=== PATIENT | female | born 1990 | race Caucasian/White ===

== ENCOUNTER 2016-04-10 19:25 | Emergency (ER) | payer MEDICAID ==
[~2016-04-10 19:25] MED LIST: CLIN150 PO
[2016-04-10] MEDS ORDERED: LACTATED RINGER'S 1000 ML INJ 1,000 ML IV SCH (20:04)
--- NOTE | 2016-04-10 20:12 | PD ---
HPI Travel History International Travel<30 Days: No Contact w/Intl Traveler<30Days: No Known Affected Area: No History of Present Illness HPI This patient is a 25-year-old 2 para 1 EDC is July 29, 2016 presently at 24 weeks and 2 days she presents the chief complaint of nausea since around known subsequent onset of lower abdominal cramping for about 3 hours no ruptured membranes no vaginal bleeding the baby is active had some chills last night no fever positive diarrhea positive nausea and vomiting mild headache with the nausea had sexual intercourse yesterday cramping is intermittent in nature care with Dr. Olson course is significant for a subchorionic bleed in the first trimester History Past Medical History Narrative Medical No known drug allergies no major medical problems Obstetric History Obstetric History First baby born March 23, 2010 female weight 7 lbs. 1 oz. vaginal delivery uncomplicated Past Surgical History Surgical History: No Previous Surgery Family History Family History: Negative Social History Alcohol Use: No Tobacco Use: No Substance Abuse: No Allergies-Medications (Allergen,Severity, Reaction): Coded Allergies: No Known Allergies (Verified , 12/20/15) Home Meds Active Scripts Cephalexin 500 Mg [id number] Mg PO Q12H #14 CAP Ref 0 Prov:Tamika Maloney MD R2 04/10/16 Clindamycin Hcl (Cleocin)150 Mg [id number] Mg PO Q6 10 Days Prov:Frieda Mendoza 08/11/14 Review of Systems General / Constitutional: Chills Eyes: No: Diploplia, Blurred Vision, Visual changes, Pain, Photophobia, Other HENT: Headaches Cardiovascular: No: Irregular Rhythm, Chest Pain or Discomfort, Palpitations, Tachycardia, Syncope, Varicosities, Edema, Cyanosis, Other Respiratory: No: Cough, Short of Breath, Wheezing, Other Gastrointestinal: Nausea, Vomiting, Diarrhea, Abdominal Pain Genitourinary: No: Urgency, Frequency, Dysuria, Nocturia, Hematuria, Decreased Urinary Output, Oliguria, Hesitancy, Dribbling, Incontinence, Pelvic Pain, Dyspareunia, Discharge, Menorrhagia, Vaginal Bleeding, Other Musculoskeletal: No: Limited ROM, Weakness, Cramping, Edema, Pain, Other Physical Exam Narrative GENERAL: Well-nourished, well-developed patient. Alert oriented 3 and cooperative in no acute distress CARDIOVASCULAR: Regular rate and rhythm without murmurs, gallops, or rubs. RESPIRATORY: Breath sounds equal bilaterally. No accessory muscle use. ABDOMEN/GI: Gravid consistent with approximately 24 weeks soft nontender positive bowel sounds no epigastric or right upper quadrant tenderness no organomegaly uterus nontender Gravid to [-] weeks size 24 Fundal Height: [-] GENITOURINARY: Speculum exam is done no fluid no blood in the vagina cervix visibly long and closed External Genitalia: intact and normal in appearance BUS glands: [-] Cervix: [-] Posterior firm Dilatation: [-] Closed Effacement: [-] 0 Station: [-] High Presentation: [-] Vertex on ultrasound Membranes: [intact Uterine Contractions: [-]0 FHT's: Category: [-] Baseline: [-] 140 Reactive: [-] + Variability: [-] Moderate [id number] variability Decels: [-] Is to be 1 variable seen EXTREMITIES: No cyanosis or edema. 2+ reflexes NEUROLOGICAL: Awake and alert. Motor and sensory grossly within normal limits. Five out of 5 muscle strength in all muscle groups. Normal speech. Data Data Vital Signs Reviewed: Yes (blood pressures 120/74 pulse 108 temperature is 99.2 ) Orders Vital Signs (Adult) .ON ADMISSION (04/10/16 20:04) Labs Bedside ultrasound is done it's a vertex presentation the BPD is 6.17 equaling 24 weeks and 2 days Anterior grade 2 placenta no previa no abruption Cervical length is 3.07 no funneling at the internal os heart rate 1 54 bpm Baseline Positive flexion positive tone the baby is very active Normal pockets of fluid throughout MDM Medical Record Reviewed: No Interpretation(s) 25-year-old at 24 weeks and 2 days Not in labor Gastroenteritis Mild dehydration Rule out UTI Narrative Course / MDM Patient is feeling much better after IV fluid hydration and Zofran Sleeping Urinalysis culture is indicated Platelets are 325,000 hemoglobin is 12.2 As patient has an IV already will give Rocephin 1 g IV Discharge home on Keflex 500 mg by mouth 3 times a day for 7 days She is to follow-up with Dr. Olson And 24-48 hours By mouth fluid hydration kick counts Take her meds call Dr. Coppola office in the a.m. The machine running the CMP is down specimen most likely hemolyzed after the dose of Rocephin will discharge patient home have her follow-up with Dr. Olson and 24-48 hours Plan External monitoring IV fluid hydration lactated Ringer's at 1 25 cc an hour Zofran 4 mg IV single dose CBC CMP urinalysis Urine drug screen Reevaluation Diagnosis Diagnosis: Primary Impression: 24 weeks gestation of Additional Impressions: Gastroenteritis Dehydration UTI (urinary tract infection) in in second trimester Disposition: 01 DISCHARGE HOME Condition: Stable Scripts Cephalexin 500 Mg [id number] Mg PO Q12H #14 CAP Ref 0 Prov:Tamika Maloney MD R2 04/10/16 Kala Lin MD Apr 10, 2016 20:12
[2016-04-10] MEDS ORDERED: ONDANSETRON HCL 4 MG/2 ML VIAL IV ONE (20:15)
[2016-04-10 21:11] LABS: BACTERIA, URINE RARE /hpf; BLOOD, URINE NEG (NEG); COMMENT (UR) CULTURE INDICATED; CULTURE IF INDICATED CULTURE INDICATED; GLUCOSE,URINE NEG (NEG); KETONE, URINE 150 mg/dL (NEG); MUCUS URINE FEW /lpf (OCC); NITRITE,URINE NEG (NEG); PH, URINE 6.5 (5.0-8.5); SQUAMOUS EPITHELIAL CELL URINE 69 /hpf (0-5); URINE COLOR YELLOW (YELLW/STRAW)
[2016-04-10 21:21] LABS: HEMATOCRIT 35.2 % (35.0-46.0); MEAN CELL VOLUME 88.8 FL (80.0-100.0); MEAN CORPUSCULAR HEMOGLOBIN 30.9 PG (27.0-34.0); MEAN CORPUSCULAR HGB CONC 34.8 % (32.0-36.0); PLATELET COUNT 325 TH/MM3 (150-450); RED BLOOD COUNT 3.97 MIL/MM3 (4.00-5.30); RED CELL DISTRIBUTION WIDTH 13.2 % (11.6-17.2); REVIEW FLAG FINAL; WHITE BLOOD COUNT 11.1 TH/MM3 (4.0-11.0)
[2016-04-10] MEDS ORDERED: CEPH500C PO (21:29)
[2016-04-10] MEDS ORDERED: SODIUM CHLOR 0.9% 1000 ML INJ 1,000 ML IV SCH (21:29)
[2016-04-10] MEDS ORDERED: cefTRIAXone INJ 1,000 MG in SODIUM CHLORIDE 0.9% INJ 100 ML IV ONE (21:30)
[2016-04-10 22:13] LABS: AMPHETAMINE, URINE NEG (NEG); BARBITURATES, URINE NEG (NEG); COCAINE, URINE NEG (NEG)
[2016-04-10 22:19] LABS: ALT (GPT) 13 U/L (10-53); ANION GAP 9 MEQ/L (5-15); AST (GOT) 10 U/L (15-37); BICARBONATE 24.4 MEQ/L (21.0-32.0); BLOOD UREA NITROGEN 7 MG/DL (7-18); CHLORIDE 107 MEQ/L (98-107); GLOMERULAR FILTRATION RATE 149 ML/MIN (>89); POTASSIUM 3.5 MEQ/L (3.5-5.1); SODIUM (NA) 140 MEQ/L (136-145)
[2016-04-10 22:21] LABS: ALKALINE PHOSPHATASE 59 U/L (45-117); TOTAL BILIRUBIN ADULT 0.3 MG/DL (0.2-1.0)
[2016-04-15 11:32] LABS: OBMETHADONE UR NEG (NEG); PHENCYCLIDINE URINE NEG (NEG)
[2016-04-15 11:33] LABS: BATH SALTS (MDPV) UR NEG (NEG); ECSTASY (MDMA) UR NEG (NEG); HEROIN (6-ACETYLMORPHINE) UR NEG (NEG); K2 SPICE UR NEG (NEG); OXYCODONE (PERCODAN) NEG (NEG)
== END 2016-04-10 21:50 | disposition home or self-care (01) ==
LOC: HOBED 19:25
DX: O23.40 Unspecified infection of urinary tract in pregnancy, unspecified trimester (principal); O99.612 Diseases of the digestive system complicating pregnancy, second trimester; R10.9 Unspecified abdominal pain
CPT/HCPCS: 76815; 80053; 80307; 81001; 85027; 87086; 96361; 96374; 96375; 99284; G0481; J0696; J2405; J7030; J7120

== ENCOUNTER 2016-06-24 16:54 | Emergency (ER) | payer MEDICAID ==
[~2016-06-24 16:54] MED LIST changes: +CEPH500C PO
[2016-06-24 17:08] VITALS: BP 116/53; PULSE 141
[2016-06-24 17:15] VITALS: RESP 18; TEMP 98.4
[2016-06-24 17:46] LABS: BACTERIA, URINE RARE /hpf; BLOOD, URINE NEG (NEG); COMMENT (UR) CULT NOT INDICATED; CULTURE IF INDICATED CULT NOT INDICATED; GLUCOSE,URINE NEG (NEG); KETONE, URINE NEG (NEG); MUCUS URINE FEW /lpf (OCC); NITRITE,URINE NEG (NEG); SQUAMOUS EPITHELIAL CELL URINE 4 /hpf (0-5); URINE COLOR YELLOW (YELLW/STRAW)
--- NOTE | 2016-06-24 18:24 | PD ---
HPI Chief Complaint Swelling in her hands and feet Date Seen: Jun 24, 2016 Travel History International Travel<30 Days: No Contact w/Intl Traveler<30Days: No Known Affected Area: No History of Present Illness HPI This patient is a 25-year-old white female at [address] Olson for care presents complaining of swelling in her hands and feet over the last several weeks she denies bleeding leakage of fluid or contractions. Baby is active. Tracing is reactive and she is not viola, she denies headache blurry vision visual change, right upper quadrant pain. She does complain of swelling in her hands and feet mainly in her legs and also small white blotchy spots on her legs Para: 1 : 2 History Obstetric History Obstetric History One vaginal delivery Social History Alcohol Use: No Tobacco Use: No Substance Abuse: No Allergies-Medications (Allergen,Severity, Reaction): Coded Allergies: No Known Allergies (Verified , 12/20/15) Home Meds Active Scripts Cephalexin 500 Mg [id number] Mg PO Q12H #14 CAP Ref 0 Prov:Tamika Maloney MD R2 04/10/16 Clindamycin Hcl (Cleocin)150 Mg [id number] Mg PO Q6 10 Days Prov:Frieda Mendoza 08/11/14 Review of Systems General / Constitutional: No: Fever, Weight Gain, Chills, Other Eyes: No: Diploplia, Blurred Vision, Visual changes, Pain, Photophobia HENT: No: Headaches, Vertigo, Lightheadedness Cardiovascular: No: Irregular Rhythm, Chest Pain or Discomfort, Palpitations, Tachycardia, Syncope, Varicosities, Edema, Cyanosis Respiratory: No: Cough, Short of Breath, Other Gastrointestinal: No: Nausea, Vomiting, Diarrhea Genitourinary: No: Decreased Urinary Output, Oliguria Musculoskeletal: Edema, No: Limited ROM, Weakness, Cramping, Pain Skin: No Rash, No Itching, No Dryness, No Lumps, No Change in Pigmentation, No Change in Nails, No Alopecia, No Lesions Neurologic: No: Weakness, Dizziness, Syncope, Focal Abnormalities, Coordination Problem, Headache, Slurred Speech, Seizures Psychiatric: No: Depression, Suicidal Ideations, Homicidal Ideation Endocrine: No: Heat Intolerance, Cold Intolerance, Polydipsia, Polyuria, Other Physical Exam Narrative GENERAL: Well-nourished, well-developed patient. SKIN: Warm and dry. HEAD: Normocephalic and atraumatic. EYES: No scleral icterus. No injection or drainage. ENT: No nasal drainage noted. Mucous membranes pink. Airway patent. NECK: Supple, trachea midline. No JVD. CARDIOVASCULAR: Regular rate and rhythm without murmurs, gallops, or rubs. RESPIRATORY: Breath sounds equal bilaterally. No accessory muscle use. BREASTS: Bilateral exam showed no masses , no retractions, no nipple discharge. ABDOMEN/GI: Abdomen soft, non-tender, bowel sounds present, no rebound, no guarding Gravid to [35-] weeks size Fundal Height: [-35] Uterine Contractions: [-none] FHT's: Category: [-1] Baseline: [-133] Reactive: [-yes] Variability: [-mod] Decels: [none-] EXTREMITIES: No cyanosis ,2+ edema. It is noted in the pretibial area both legs and feet ,minimal swelling seen in her hands BACK: Nontender without obvious deformity. No CVA tenderness. NEUROLOGICAL: Awake and alert. Motor and sensory grossly within normal limits. Five out of 5 muscle strength in all muscle groups. Normal speech. Data Data Orders Vital Signs (Adult) .ON ADMISSION (06/24/16 17:07) ^ Labor Status (06/24/16 17:07) Urinalysis - C+S If Indicated (06/24/16 17:07) Labs Laboratory Tests Test 06/24/16 17:10 Urine Color YELLOW Urine Turbidity HAZY Urine pH 7.0 Urine Specific Vandiver 1.011 Urine Protein NEG Urine Glucose (UA) NEG Urine Ketones NEG Urine Occult Blood NEG Urine Nitrite NEG Urine Bilirubin NEG Urine Urobilinogen LESS THAN 2.0 Urine Leukocyte Esterase TRACE Urine RBC LESS THAN 1 Urine WBC 1 Urine Squamous Epithelial 4 Cells Urine Bacteria RARE Urine Mucus FEW Microscopic Urinalysis Comment CULT NOT INDICATED MDM Interpretation(s) Patient is 25-year-old white female at 35 weeks who presents complaining of swelling in her hands and feet. She denies any symptoms related to preeclampsia otherwise no visual change headaches blurry vision abdominal pain. heart rate tracing is reactive and no regular contractions, urinalysis negative for protein, on exam she has moderate edema in both lower extremities. Patient has a 4-year-old child and she is very busy working or going to school all day and then dealing with baby at night and so she is up on her feet a lot. Plan Plan for the patient to try and get a little bit more bedrest during this last month proper legs up. Cut back on salt in her diet. And follow-up with Dr. Olson for more visits or evaluations Diagnosis Diagnosis: Primary Impression: Swelling of lower extremity during in third trimester Disposition: 01 DISCHARGE HOME Condition: Stable Samir Mccord II, MD Jun 24, 2016 18:24
== END 2016-06-24 18:52 | disposition home or self-care (01) ==
LOC: HOBED 16:54
DX: O26.93 Pregnancy related conditions, unspecified, third trimester (principal); Z3A.35 35 weeks gestation of pregnancy
CPT/HCPCS: 59025; 81001

== ENCOUNTER 2016-07-09 05:15 | Inpatient (IN) | payer MEDICAID ==
[~2016-07-09] VITALS: Ht 165.1 cm; Wt 83.9 kg
[2016-07-09] VITALS (34 sets, daily range): BP systolic 94–154; BP diastolic 49–99; PULSE 75–104; RESP 16–18; TEMP 97.4–98.2
[2016-07-09] MEDS ORDERED: LACTATED RINGER'S 1000 ML INJ 1,000 ML IV PRN (05:49)
[2016-07-09] MEDS ORDERED: LACTATED RINGER'S 1000 ML INJ 1,000 ML IV SCH (05:49)
[2016-07-09] MEDS ORDERED: OXYTOCIN 30 UNITS-500ML PREMIX 500 ML IV ONE ×2 (06:00→08:45)
[2016-07-09] MEDS ORDERED: MINERAL OIL 10 ML VIAL TOPICAL PRN (06:00)
[2016-07-09] MEDS ORDERED: CITRIC ACID-SODIUM CITRATE LIQ 30 ML UDC PO SCH (06:00)
[2016-07-09] MEDS ORDERED: LIDOCAINE HCL 1% 50 ML VIAL INFIL PRN (06:00)
[2016-07-09] MEDS ORDERED: LIDOCAINE HCL 1% 50 ML VIAL I-DERMAL PRN (06:00)
[2016-07-09] MEDS ORDERED: ONDANSETRON HCL 4 MG/2 ML VIAL IV PRN (06:00)
[2016-07-09] MEDS ORDERED: SODIUM CHLORID 0.9% 500 ML INJ 500 ML IV PRN (06:00)
--- NOTE | 2016-07-09 06:04 | PD ---
HPI Chief Complaint contractions Date Seen: July 09, 2016 Time Seen: 05:45 Travel History International Travel<30 Days: No Contact w/Intl Traveler<30Days: No Known Affected Area: No History of Present Illness HPI Pt is a 25 y/o with IUP at 37.1 weeks c/o contractions q 2 min. no vb, lof. +FM Para: 1 : 2 History Past Medical History Narrative Medical anemia Obstetric History Obstetric History 2012 FTSVD, no complications Past Surgical History Surgical History: No Previous Surgery Family History Family History: Negative Social History Alcohol Use: No Tobacco Use: No Substance Abuse: No Allergies-Medications (Allergen,Severity, Reaction): Coded Allergies: No Known Allergies (Verified , 12/20/15) Home Meds Active Scripts Cephalexin 500 Mg [id number] Mg PO Q12H #14 CAP Ref 0 Prov:Tamika Maloney MD R2 04/10/16 Clindamycin Hcl (Cleocin)150 Mg [id number] Mg PO Q6 10 Days Prov:Frieda Mendoza 08/11/14 Review of Systems General / Constitutional: Weight Gain Eyes: No: Diploplia, Blurred Vision, Visual changes, Pain, Photophobia, Other HENT: No: Headaches, Vertigo, Dental Difficulties, Lightheadedness, Other Cardiovascular: Edema Respiratory: No: Cough, Short of Breath, Wheezing, Other Gastrointestinal: Abdominal Pain Genitourinary: No: Urgency, Frequency, Dysuria, Nocturia, Hematuria, Decreased Urinary Output, Oliguria, Hesitancy, Dribbling, Incontinence, Pelvic Pain, Dyspareunia, Discharge, Menorrhagia, Vaginal Bleeding, Other Musculoskeletal: Edema Skin: No Rash, No Itching, No Dryness, No Lumps, No Change in Pigmentation, No Change in Nails, No Alopecia, No Lesions, No Breast Lumps, No Breast Tenderness , No Breast Swelling, No Other Neurologic: No: Weakness, Dizziness, Syncope, Focal Abnormalities, Coordination Problem, Headache, Slurred Speech, Seizures, Other Psychiatric: No: Anxiety, Depression, Suicidal Ideations, Disorder of Thought, Mood Disorder, Substance Abuse, Homicidal Ideation, Other Endocrine: No: Heat Intolerance, Cold Intolerance, Polydipsia, Polyuria, Other Hematologic/Lymphatic: No Easy Bruising, No Lymph Node Enlargement, No Other Physical Exam 130/87, 89, 18, 98.1 Narrative GENERAL: Well-nourished, well-developed patient. SKIN: Warm and dry. HEAD: Normocephalic and atraumatic. EYES: No scleral icterus. No injection or drainage. ENT: No nasal drainage noted. Mucous membranes pink. Airway patent. NECK: Supple, trachea midline. No JVD. CARDIOVASCULAR: Regular rate and rhythm without murmurs, gallops, or rubs. RESPIRATORY: Breath sounds equal bilaterally. No accessory muscle use. . ABDOMEN/GI: Abdomen soft, non-tender, bowel sounds present, no rebound, no guarding Gravid GENITOURINARY: External Genitalia: intact and normal in appearance per RN exam 4-5/80/-1. vertex bedside ultrasound confirms vtx Membranes:intact Uterine Contractions: q2 FHT's: Category: [1] Baseline: 120s Reactive: yes Variability: mod Decels: no EXTREMITIES: No cyanosis or edema. BACK: Nontender without obvious deformity. No CVA tenderness. NEUROLOGICAL: Awake and alert. Motor and sensory grossly within normal limits. Five out of 5 muscle strength in all muscle groups. Normal speech. Data Data Vital Signs Reviewed: Yes Orders Ob (2e) Additional Admit Info (07/09/16 05:44) Admit To Inpatient (07/09/16 ) Code Status (07/09/16 05:49) Vital Signs (Adult) .Per protocol (07/09/16 05:49) Heart (07/09/16 05:49) Amnioinfusion (07/09/16 05:49) Urinary Catheter Management .ONCE (07/09/16 05:49) Diet Liquid (07/09/16 Breakfast) Lactated Ringer's 1000 Ml Inj (Lr 1000 M (07/09/16 05:49) Lactated Ringer's 1000 Ml Inj (Lr 1000 M (07/09/16 05:49) Sodium Chlorid 0.9% 500 Ml Inj (Ns 500 M (07/09/16 06:00) Sodium Chlor 0.9% 1000 Ml Inj (Ns 1000 M (07/09/16 06:09) Lidocaine 1% Inj (50 Ml) (Xylocaine 1% I (07/09/16 06:00) Citric Acid-Sodium Citrate Liq (Bicitra (07/09/16 06:00) Ondansetron Inj (Zofran Inj) (07/09/16 06:00) Fentanyl Inj (Fentanyl Inj) (07/09/16 06:00) Fentanyl Inj (Fentanyl Inj) (07/09/16 06:00) Complete Blood Count With Diff (07/09/16 05:49) Hold Clot (07/09/16 05:49) Abo/Rh Blood Type (07/09/16 05:49) Urinalysis - C+S If Indicated (07/09/16 05:49) Resp Oxygen Non Rebreathe Mask (07/09/16 ) ^ Epidural / Intrathecal Infus (07/09/16 05:49) Oxytocin 30 Units-500ml Premix (Pitocin (07/09/16 06:00) Lidocaine 1% Inj (50 Ml) (Xylocaine 1% I (07/09/16 06:00) Light Mineral Oil (Muri-Lube Oil) (07/09/16 06:00) MDM Narrative Course / MDM 25 y/o with IUP at 37.1 wks, active labor admit for delivery GBS neg per pt report, will have Dr. Olson confirm Roxy Beckman MD July 09, 2016 06:04
[2016-07-09 06:08] LABS: AUTOMATED NEUTROPHIL # 8.8 TH/MM3 (1.8-7.7); BASOPHIL # 0.1 TH/MM3 (0-0.2); BASOPHIL % 0.5 % (0.0-2.0); EOSINOPHIL # 0.1 TH/MM3 (0-0.4); EOSINOPHIL % 0.4 % (0.0-4.0); HEMATOCRIT 33.8 % (35.0-46.0); HEMO FLAGS DIFF FINAL; LYMPH % 24.1 % (9.0-44.0); MEAN CELL VOLUME 83.8 FL (80.0-100.0); MEAN CORPUSCULAR HEMOGLOBIN 28.7 PG (27.0-34.0); MEAN CORPUSCULAR HGB CONC 34.3 % (32.0-36.0); MONO % 4.6 % (0.0-8.0); NEUT % 70.4 % (16.0-70.0); PLATELET COUNT 430 TH/MM3 (150-450); RED BLOOD COUNT 4.04 MIL/MM3 (4.00-5.30); RED CELL DISTRIBUTION WIDTH 14.7 % (11.6-17.2); WHITE BLOOD COUNT 12.6 TH/MM3 (4.0-11.0)
[2016-07-09] MEDS ORDERED: SODIUM CHLOR 0.9% 1000 ML INJ 1,000 ML IV PRN (06:09)
[2016-07-09] MEDS ORDERED: fentaNYL 2MCG-BUPIV 0.125% INJ 100 ML ONE (06:14)
[2016-07-09 06:55] LABS: BACTERIA, URINE RARE /hpf; BLOOD, URINE NEG (NEG); COMMENT (UR) CULT NOT INDICATED; CULTURE IF INDICATED CULT NOT INDICATED; GLUCOSE,URINE NEG (NEG); KETONE, URINE NEG (NEG); MUCUS URINE FEW /lpf (OCC); NITRITE,URINE NEG (NEG); SQUAMOUS EPITHELIAL CELL URINE 17 /hpf (0-5); URINE COLOR LIGHT-YELLOW (YELLW/STRAW)
[2016-07-09] MEDS ORDERED: PREN29TA PO (07:31)
[2016-07-09] MEDS ORDERED: ePHEDrine/NS 25 MG/5 ML SYR IV PRN (08:15)
--- NOTE | 2016-07-09 08:36 | PD.OB.DELI ---
Delivery Date: July 09, 2016 Anesthesia: Epidural Episiotomy: None Vaginal Delivery: Normal Presentation: Occiput anterior Nuchal Cord: None Delayed cord clamping (45 sec): Yes Shoulder Dystocia: Harlan maneuver done Infant: Male One Minute : 7 Five Minute : 9 Weight: 8/14 Placenta: Spontaneous delivery, Intact, 3 vessel cord Laceration: No lacerations Additional Information Nice delivery of ([place], my name for the baby) Mild shoulder resolved with Harlan Terminal meconium. EBL 300cc Jerald Olson MD July 09, 2016 08:36
[2016-07-09] MEDS ORDERED: WITCH HAZEL 50%/GLYCERIN 12.5% 40 PAD JAR TOPICAL PRN (08:45)
[2016-07-09] MEDS ORDERED: oxyCODONE/ACETAMINOPHEN 5 MG/325 MG TAB PO PRN ×2 (08:45)
[2016-07-09] MEDS ORDERED: DOCUSATE SODIUM 50 MG/SENNA 8.6 MG TAB PO PRN (08:45)
[2016-07-09] MEDS ORDERED: SODIUM CHLORIDE 0.9% FLUSH 10 ML FLUSH IV FLUSH PRN (08:45)
[2016-07-09] MEDS ORDERED: ONDANSETRON ODT 4 MG TAB PO PRN (08:45)
[2016-07-09] MEDS ORDERED: ACETAMINOPHEN 325 MG TAB PO PRN (08:45)
[2016-07-09] MEDS ORDERED: BENZOCAINE 20% TOPICAL SPRAY 60 ML CAN TOPICAL PRN (08:45)
[2016-07-09] MEDS ORDERED: ALUMINUM/MAGNESIUM/SIMETH 30 ML CUP PO PRN (08:45)
[2016-07-09] MEDS ORDERED: fentaNYL 2MCG-BUPIV 0.125% 100 ML EPIDURAL SCH (09:00)
[2016-07-09] MEDS ORDERED: DO NOT ADMINISTER ANTICOAGULANTS PRN (09:00)
[2016-07-09] MEDS ORDERED: NO SYSTEM NARCOTICS PRN (09:00)
[2016-07-09] MEDS: SODIUM CHLORIDE 0.9% FLUSH 10 ML FLUSH IV FLUSH SCH (09:13)
[2016-07-09] MEDS: IBUPROFEN 600 MG TAB PO PRN ×2 (12:13→21:17)
[2016-07-09] MEDS ORDERED: MEASLES, MUMPS, RUBELLA VACCINE 0.5 ML VIAL SQ ONE (16:00)
[2016-07-09] MEDS ORDERED: DIPHTH/TETANUS/ACEL PERTUSSIS (BOOSTER) 0.5 ML VIAL/PFS IM ONE (16:00)
[2016-07-09] MEDS ORDERED: ZOLPIDEM TARTRATE 5 MG TAB PO PRN (21:00)
[2016-07-10 07:45] VITALS: BP 105/63; PULSE 18; RESP 18; TEMP 98
--- NOTE | 2016-07-10 08:37 | HHI.OB ---
Subjective Post Day: 1 Objective Vitals/I&O Vital Signs Date Time Temp Pulse Resp B/P Pulse Ox O2 Delivery O2 Flow Rate FiO2 07/09/16 12:15 98.2 76 18 139/78 07/09/16 10:06 18 07/09/16 10:00 82 122/71 07/09/16 09:45 76 120/69 07/09/16 09:43 18 07/09/16 09:40 18 07/09/16 09:31 82 106/81 07/09/16 09:19 16 07/09/16 09:15 82 126/85 07/09/16 09:02 18 07/09/16 09:01 83 112/99 07/09/16 08:45 86 131/83 07/09/16 08:43 97.6 07/09/16 08:41 18 07/09/16 08:40 91 116/72 07/09/16 08:40 93 Objective Remarks GENERAL: Well-nourished, well-developed patient. CARDIOVASCULAR: Regular rate and rhythm without murmurs, gallops, or rubs. RESPIRATORY: Breath sounds equal bilaterally. No accessory muscle use. ABDOMEN/GI: Abdomen soft, non-tender. Fundus: Firm, non-tender at umbilicus. GENITOURINARY: Light to moderate bleeding. EXTREMITIES: No cyanosis or edema, non-tender, without signs of DVT. Medications and IVs Current Medications Medications (Trade) Dose Ordered Sig/Charissa Route Start Time Stop Time Status Last Admin (NS Flush) 2 ml BID IV FLUSH 07/09/16 09:00 07/09/16 09:13 (NS Flush) 2 ml UNSCH PRN IV FLUSH 07/09/16 08:45 (Tylenol) 650 mg Q4H PRN PO 07/09/16 08:45 (Motrin) 600 mg Q6H PRN PO 07/09/16 08:45 07/09/16 21:17 (Percocet 5-325 Mg) 1 tab Q4H PRN PO 07/09/16 08:45 (Percocet 5-325 Mg) 2 tab Q4H PRN PO 07/09/16 08:45 (Americaine 20% Top Spr) 1 spray Q4H PRN TOPICAL 07/09/16 08:45 (Tucks Pads) 1 applic QID PRN TOPICAL 07/09/16 08:45 (Julia-Colace) 2 tab Q12H PRN PO 07/09/16 08:45 (Ambien) 5 mg HS PRN PO 07/09/16 21:00 (Mag-Al Plus Susp Liq) 15 ml Q8H PRN PO 07/09/16 08:45 (Zofran Odt) 4 mg Q6H PRN PO 07/09/16 08:45 Assessment/Plan Problem List: (1) Normal vaginal delivery Plan: ROUTINE Assessment and Plan PT DOING WELL BONDING WITH PAIN WELL MANAGED WITH MOTRIN ROUTINE Discharge Planning DC HOME TOMORROW Kristin Oreilly July 10, 2016 08:37
--- NOTE | 2016-07-10 08:38 | HHI.DCPOC ---
Discharge Care Plan Diagnosis: (1) Normal vaginal delivery Report Symptoms to Your Doctor -Temperate above 100.5 degrees -Redness, of incision or excessive or foul smelling drainage -Unusual pain or calf pain -Increased vaginal bleeding -Painful or difficulty urinating -Feelings of extreme sadness or anxiety after 2 weeks Goals to Promote Your Health * To prevent worsening of your condition and complications * To maintain your health at the optimal level Directions to Meet Your Goals Take your medications as prescribed Follow your dietary instruction Follow activity as directed Ensure plenty of rest for recovery Drink fluids for hydration Keep your appointments as scheduled Take your immunizations and boosters as scheduled If your symptoms worsen call your PCP, if no PCP go to Urgent Care Center or Emergency Room Smoking is Dangerous to Your Health. Avoid second hand smoke Call the 24-hour crisis hotline for domestic abuse at Kristin Oreilly July 10, 2016 08:38
--- NOTE | 2016-07-10 08:40 | HHI.DS ---
Admission Date July 09, 2016 at 05:45 Discharge Date: July 11, 2016 Admitting Diagnosis 37 WEEK LABOR Diagnosis: (1) Normal vaginal delivery Diagnosis: Principal Delivery Date: July 09, 2016 Vaginal Delivery: Normal Infant: Male Brief History Pt is a 25 y/o with IUP at 37.1 weeks c/o contractions q 2 min. no vb, lof. 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
[2016-07-10] MEDS: IBUPROFEN 600 MG TAB PO PRN (18:39)
[2016-07-10] MEDS: SODIUM CHLORIDE 0.9% FLUSH 10 ML FLUSH IV FLUSH SCH (21:00)
--- NOTE | 2016-07-11 07:47 | HHI.OB ---
Subjective Post Day: 2 Remarks Doing well, pain is well controlled Bleeding is normal. Ready to go home. Objective Vitals/I&O Vital Signs Date Time Temp Pulse Resp B/P Pulse Ox O2 Delivery O2 Flow Rate FiO2 07/10/16 07:45 18 18 105/63 07/10/16 07:45 98.0 Objective Remarks GENERAL: Well-nourished, well-developed patient. CARDIOVASCULAR: Regular rate and rhythm without murmurs, gallops, or rubs. RESPIRATORY: Breath sounds equal bilaterally. No accessory muscle use. ABDOMEN/GI: Abdomen soft, non-tender. Fundus: Firm, non-tender at umbilicus. GENITOURINARY: Light to moderate bleeding. EXTREMITIES: No cyanosis or edema, non-tender, without signs of DVT. Medications and IVs Current Medications Medications (Trade) Dose Ordered Sig/Charissa Route Start Time Stop Time Status Last Admin (NS Flush) 2 ml BID IV FLUSH 07/09/16 09:00 07/09/16 09:13 (NS Flush) 2 ml UNSCH PRN IV FLUSH 07/09/16 08:45 (Tylenol) 650 mg Q4H PRN PO 07/09/16 08:45 (Motrin) 600 mg Q6H PRN PO 07/09/16 08:45 07/10/16 18:39 (Percocet 5-325 Mg) 1 tab Q4H PRN PO 07/09/16 08:45 (Percocet 5-325 Mg) 2 tab Q4H PRN PO 07/09/16 08:45 (Americaine 20% Top Spr) 1 spray Q4H PRN TOPICAL 07/09/16 08:45 (Tucks Pads) 1 applic QID PRN TOPICAL 07/09/16 08:45 (Julia-Colace) 2 tab Q12H PRN PO 07/09/16 08:45 (Ambien) 5 mg HS PRN PO 07/09/16 21:00 (Mag-Al Plus Susp Liq) 15 ml Q8H PRN PO 07/09/16 08:45 (Zofran Odt) 4 mg Q6H PRN PO 07/09/16 08:45 Assessment/Plan Problem List: (1) Normal vaginal delivery Plan: ROUTINE Assessment and Plan POD #2 Doing well Ready to go home. Discharge Planning DC HOME TOMORROW Jerald Olson MD July 11, 2016 07:47
[2016-07-11] MEDS ORDERED: IBUP-232 PO (08:07)
[2016-07-11 08:11] VITALS: BP 124/74; PULSE 76; RESP 18; TEMP 97.7
[2016-07-11] MEDS: SODIUM CHLORIDE 0.9% FLUSH 10 ML FLUSH IV FLUSH SCH (09:00)
[2016-07-11] MEDS: IBUPROFEN 600 MG TAB PO PRN (11:38)
== END 2016-07-11 13:34 | disposition home or self-care (01) | DRG 775 ==
LOC: HOBED 05:15 → H2EB 05:45 → H1EA 12:07
PROVIDERS: ADMIT Obstetrics & Gynecology; ATTEND Obstetrics & Gynecology
PROC: 10E0XZZ Delivery of Products of Conception, External Approach (ICD-10-PCS; principal; 2016-07-09)
DX: O66.0 Obstructed labor due to shoulder dystocia (principal); O77.0 Labor and delivery complicated by meconium in amniotic fluid; Z37.0 Single live birth; Z3A.37 37 weeks gestation of pregnancy
CPT/HCPCS: 81001; 85025; 86900; 86901; 90715; 99285; J2590

== ENCOUNTER 2016-12-09 09:03 | Emergency (ER) | payer MEDICAID ==
[~2016-12-09] VITALS: Ht 167.6 cm; Wt 74.0 kg
[~2016-12-09 09:03] MED LIST changes: -CEPH500C PO; -CLIN150 PO; +IBUP-232 PO; +PREN29TA PO
[2016-12-09 09:06] VITALS: BP 138/87; PULSE 65; RESP 13; TEMP 97.5; O2SAT 96
--- NOTE | 2016-12-09 09:28 | PD ---
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 States she was diagnosed with chlamydia and [facility] ago. However, they could not find the IUD and she was told to get an outpatient ultrasound but never did. Pain is sharp, worst at night and intermittent. Associated with nausea and brown vaginal discharge. Increased urinary frequency. Denies any fever, chest pain, sob, vomiting, hematuria. PFSH Past Medical History : 1 Para: 1 Miscarriage: 0 : 0 Social History Alcohol Use: No Tobacco Use: No Substance Use: No Allergies-Medications (Allergen,Severity, Reaction): Coded Allergies: No Known Allergies (Verified , 12/09/16) Reported Meds & Prescriptions Reported Meds & Active Scripts Active No Active Prescriptions or Reported Medications Review of Systems Except as stated in HPI: all other systems reviewed are Neg Physical Exam Narrative GENERAL: 26yo F not in distress. SKIN: Focused skin assessment warm/dry. HEAD: Atraumatic. Normocephalic. CARDIOVASCULAR: Regular rate and rhythm. No murmur appreciated. RESPIRATORY: No accessory muscle use. Clear to auscultation. Breath sounds equal bilaterally. GASTROINTESTINAL: Abdomen soft, non-tender, nondistended. No rebound tenderness or guarding. PELVIC: +Brown discharge in vaginal vault. Do not see any IUD string from cervix. No CMT or adnexal tenderness bilaterally. MUSCULOSKELETAL: No obvious deformities. No clubbing. No cyanosis. No edema. NEUROLOGICAL: Awake and alert. No obvious cranial nerve deficits. Motor grossly within normal limits. Normal speech. PSYCHIATRIC: Appropriate mood and affect; insight and judgment normal. Data Data Last Documented VS Vital Signs Date Time Temp Pulse Resp B/P (MAP) Pulse Ox O2 Delivery O2 Flow Rate FiO2 12/09/16 09:06 97.5 65 13 138/87 (104) 96 Orders Orders Gc And Chlamydia Pcr (12/09/16 09:28) Wet Prep Profile (12/09/16 09:28) Urinalysis - C+S If Indicated (12/09/16 09:28) Ed Urine Pregnancytest Poc (12/09/16 09:28) Us Pelvis Comp W Doppler (12/09/16 ) Labs Laboratory Tests Test 12/09/16 09:59 Urine Color YELLOW Urine Turbidity HAZY Urine pH 5.5 Urine Specific [place] 1.024 Urine Protein NEG mg/dL Urine Glucose (UA) NEG mg/dL Urine Ketones NEG mg/dL Urine Occult Blood SMALL Urine Nitrite NEG Urine Bilirubin NEG Urine Urobilinogen LESS THAN 2.0 MG/DL Urine Leukocyte Esterase NEG Urine RBC LESS THAN 1 /hpf Urine WBC 1 /hpf Urine Squamous Epithelial Cells 2 /hpf Urine Bacteria OCC /hpf Urine Hyaline Casts 1 /lpf Urine Mucus FEW /lpf Microscopic Urinalysis Comment CULT NOT INDICATED Clue Cells (Wet Prep) NONE SEEN Vaginal Trichomonas (Wet Prep) NONE SEEN Vaginal Yeast (Wet Prep) NONE SEEN MDM Medical Decision Making Medical Screen Exam Complete: Yes Emergency Medical Condition: Yes Differential Diagnosis PID vs. displaced IUD vs. bacterial vaginosis vs. Narrative Course 26yo F with intermittent pelvic pain and vaginal discharge for 2 weeks. Pt is well appearing and has no abdominal tenderness on exam. Pelvic exam is remarkable for brownish discharge but no CMT or adnexal tenderness bilaterally. Also does not see the string from the IUD. UA showed WBC of only 1. Culture not indicated. Wet prep negative. Urine negative. VS stable. US pelvis showed IUD in expected position. No mass. Return precautions given. 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 Return to the ED if symptoms worsen. Med/Other Pt SpecificInfo: Prescription(s) given Scripts Acetaminophen (Tylenol) 325 Mg Tab 650 MG PO Q6H Y for PAIN SCALE 1 TO 4, #20 TAB 0 Refills Prov: Marley Jha DO 12/09/16 Disposition: 01 DISCHARGE HOME Condition: Stable Marley Jha DO Dec 09, 2016 09:28
[2016-12-09 10:21] LABS: BLOOD, URINE SMALL (NEG); COMMENT (UR) CULT NOT INDICATED; CULTURE IF INDICATED CULT NOT INDICATED; GLUCOSE,URINE NEG (NEG); HYALINE CAST, URINE 1 /lpf (RARE); KETONE, URINE NEG (NEG); MUCUS URINE FEW /lpf (OCC); NITRITE,URINE NEG (NEG); PH, URINE 5.5 (5.0-8.5); SQUAMOUS EPITHELIAL CELL URINE 2 /hpf (0-5); URINE COLOR YELLOW (YELLW/STRAW)
[2016-12-09 10:23] LABS: BACTERIA, URINE OCC /hpf
--- NOTE | 2016-12-09 11:31 | RADRPT ---
EXAM DATE/TIME: 12/09/2016 10:39 [facility] COMPARISON: No previous studies available for comparison. INDICATIONS : Pelvic pain. MEDICAL HISTORY : Pelvic pain. Recent chlamidya diagnosis. SURGICAL HISTORY : None. ENCOUNTER: Initial ACUITY: 2 weeks PAIN SCORE: 4/10 LOCATION: Bilateral pelvis MEASUREMENTS: UTERUS: 9.4 x 4.8 x 5.5 cm ENDOMETRIAL STRIPE: 4 mm RIGHT OVARY: 1.8 x 1.0 x 1.5 cm LEFT OVARY: 2.2 x 1.5 x 1.8 cm FINDINGS: The uterus is normal in size, and shape for the patient's age. No focal masses are identified. The en dometrial stripe is normal. IUD is in the expected position. A small amount of fluid is present withi n the pelvis within the physiologic range. No adnexal masses are identified. Normal Doppler flow is p resent bilaterally. The ovaries are normal in size and shape without evidence of focal mass. CONCLUSION: 1. Unremarkable ultrasound examination of the pelvis. Intrauterine device is present Jalil Blanco MD on December 09, 2016 at 11:28 Board Certified Radiologist. This report was verified electronically.
[2016-12-09] MEDS ORDERED: TYLE325T PO (12:22)
[2016-12-09 12:39] VITALS: BP 118/78
[2016-12-09 14:18] LABS: CHLAMYDIA PCR NOT DETECTED (NOT DETECT); NEISSERIA PCR NOT DETECTED (NOT DETECT)
== END 2016-12-09 12:39 | disposition home or self-care (01) ==
LOC: NEPC 09:03
DX: N89.8 Other specified noninflammatory disorders of vagina (principal); R10.2 Pelvic and perineal pain; R11.0 Nausea; R35.0 Frequency of micturition
CPT/HCPCS: 76856; 81001; 84703; 87210; 87491; 87591; 93975

== ENCOUNTER 2017-03-20 14:27 | Emergency (ER) | payer MEDICAID ==
[~2017-03-20] VITALS: Ht 167.6 cm; Wt 75.0 kg
[~2017-03-20 14:27] MED LIST changes: -IBUP-232 PO; -PREN29TA PO; +TYLE325T PO
[2017-03-20 14:28] VITALS: BP 125/81; PULSE 79; RESP 16; TEMP 98.7; O2SAT 98
[2017-03-20] MEDS ORDERED: PENI500T PO (15:17)
--- NOTE | 2017-03-20 15:17 | PD ---
HPI Chief Complaint: Cold / Flu Symptoms Time Seen by Provider: 14:44 Travel History International Travel<30 days: No Contact w/Intl Traveler<30days: No Traveled to known affect area: No History of Present Illness HPI 26-year-old female here with sore throat and fever 4 days. She believes she has strep throat. She reports pain with swallowing but does not endorse difficulty swallowing. Symptoms severity is moderate. No alleviating factors. PFSH Past Medical History Medical History: Denies Significant Hx Diminished Hearing: No ?: Not : 2 Para: 2 Miscarriage: 0 : 0 Social History Alcohol Use: Yes (occ) Tobacco Use: No Substance Use: No Allergies-Medications (Allergen,Severity, Reaction): Coded Allergies: No Known Allergies (Verified Adverse Reaction, Unknown, 03/20/17) Reported Meds & Prescriptions Reported Meds & Active Scripts Active Tylenol (Acetaminophen) 325 Mg Tab 650 Mg PO Q6H PRN Review of Systems Except as stated in HPI: all other systems reviewed are Neg General / Constitutional: Positive: Fever Eyes: No: Visual changes HENT: Positive: Sore Throat Cardiovascular: No: Chest Pain or Discomfort Respiratory: No: Shortness of Breath Gastrointestinal: No: Abdominal Pain Genitourinary: No: Dysuria Physical Exam Narrative GENERAL: Alert and well-appearing female. SKIN: Warm and dry. HEAD: Normocephalic. EYES: No scleral icterus. No injection or drainage. Throat: Pharyngeal erythema with mild tonsillar hypertrophy and exudate. Uvula is midline. Airway is patent. NECK: Supple, trachea midline. Mild cervical lymphadenopathy. CARDIOVASCULAR: Regular rate and rhythm without murmurs, gallops, or rubs. RESPIRATORY: Breath sounds equal bilaterally. No accessory muscle use. Data Data Last Documented VS Vital Signs Date Time Temp Pulse Resp B/P (MAP) Pulse Ox O2 Delivery O2 Flow Rate FiO2 03/20/17 14:28 98.7 79 16 125/81 (96) 98 Room Air MDM Medical Decision Making Medical Screen Exam Complete: Yes Emergency Medical Condition: Yes Differential Diagnosis Strep pharyngitis, viral pharyngitis, URI Narrative Course 26-year-old female here with exudative tonsillitis. She is nontoxic appearing. She'll be treated for strep Diagnosis Primary Impression: Pharyngitis Qualified Codes: J02.9 - Acute pharyngitis, unspecified Referrals: Primary Care Physician Additional Instructions: Stable hydrated by drinking plenty of fluids. Ibuprofen or Tylenol as needed for pain. Antibiotics as prescribed Scripts Penicillin V Potassium (Penicillin V Potassium) 500 Mg Tab 500 MG PO BID for Infection for 10 Days, #20 TAB 0 Refills Prov: Romina Jack 03/20/17 Disposition: 01 DISCHARGE HOME Condition: Stable Romina Jack Mar 20, 2017 15:17
== END 2017-03-20 15:35 | disposition home or self-care (01) ==
LOC: NEPK 14:27
DX: J02.9 Acute pharyngitis, unspecified (principal)
CPT/HCPCS: 99283

== ENCOUNTER 2017-03-31 11:51 | Emergency (ER) | payer MEDICAID ==
[2017-03-31] MEDS: SODIUM CHLOR 0.9% 1000 ML INJ 1,000 ML IV (12:45)
[2017-03-31 12:55] LABS: AUTOMATED NEUTROPHIL # 1.9 TH/MM3 (1.8-7.7); BASOPHIL % 0.2 % (0.0-2.0); EOSINOPHIL # 0.1 TH/MM3 (0-0.4); EOSINOPHIL % 1.3 % (0.0-4.0); HEMATOCRIT 37.7 % (35.0-46.0); HEMO FLAGS DIFF FINAL; HEMOGLOBIN 12.6 GM/DL (11.6-15.3); LYMPH % 44.8 % (9.0-44.0); LYMPHOCYTE # 1.8 TH/MM3 (1.0-4.8); MEAN CELL VOLUME 86.1 FL (80.0-100.0); MEAN CORPUSCULAR HEMOGLOBIN 28.8 PG (27.0-34.0); MEAN CORPUSCULAR HGB CONC 33.5 % (32.0-36.0); MEAN PLATELET VOLUME 7.9 FL (7.0-11.0); MONO % 5.9 % (0.0-8.0); MONOCYTE # 0.2 TH/MM3 (0-0.9); NEUT % 47.8 % (16.0-70.0); PLATELET COUNT 302 TH/MM3 (150-450); RED BLOOD COUNT 4.38 MIL/MM3 (4.00-5.30); RED CELL DISTRIBUTION WIDTH 13.4 % (11.6-17.2)
[2017-03-31 13:00] LABS: BACTERIA, URINE RARE /hpf; BILIRUBIN, URINE NEG (NEG); BLOOD, URINE NEG (NEG); COMMENT (UR) CULT NOT INDICATED; CULTURE IF INDICATED CULT NOT INDICATED; GLUCOSE,URINE NEG (NEG); KETONE, URINE NEG (NEG); MUCUS URINE FEW /lpf (OCC); NITRITE,URINE NEG (NEG); SQUAMOUS EPITHELIAL CELL URINE 20 /hpf (0-5); URINE COLOR YELLOW (YELLW/STRAW); URINE LEUKOCYTE ESTERASE NEG (NEG)
[2017-03-31 13:04] LABS: APTT (PATIENT) 27.8 SEC (24.3-30.1); PROTHROMBIN TIME - PATIENT 10.3 SEC (9.8-11.6)
[2017-03-31 13:14] LABS: ALBUMIN 3.9 GM/DL (3.4-5.0); ALT (GPT) 14 U/L (10-53); ANION GAP 5 MEQ/L (5-15); AST (GOT) 14 U/L (15-37); BLOOD UREA NITROGEN 10 MG/DL (7-18); CALCIUM 8.4 MG/DL (8.5-10.1); CHLORIDE 107 MEQ/L (98-107); CREATININE 0.63 MG/DL (0.50-1.00); GLOMERULAR FILTRATION RATE 116 ML/MIN (>89); GLUCOSE,RANDOM 83 MG/DL (74-106); MAGNESIUM 1.9 MG/DL (1.5-2.5); POTASSIUM 3.9 MEQ/L (3.5-5.1); SODIUM (NA) 139 MEQ/L (136-145)
[2017-03-31 13:16] LABS: ALKALINE PHOSPHATASE 68 U/L (45-117); TOTAL BILIRUBIN ADULT 0.6 MG/DL (0.2-1.0); TOTAL PROTEIN 7.4 GM/DL (6.4-8.2)
== END 2017-03-31 16:55 | disposition home or self-care (01) ==
LOC: NEPC 11:51
DX: R55 Syncope and collapse (principal); R47.81 Slurred speech
CPT/HCPCS: 70450; 70486; 71045; 72050; 80053; 81001; 83735; 84703; 85025; 85610; 85730; 93005; 96360; 96361; 99285-25